=== PATIENT | female | born 1990 | race African-American/Black ===

== ENCOUNTER 2023-10-04 08:11 | Emergency (ER) | payer MEDICAID ==
[~2023-10-04] VITALS: Ht 160 cm; Wt 59.0 kg
[2023-10-04 08:13] VITALS: TEMP 98.7; O2SAT 100
[2023-10-04] MEDS ORDERED: IBUP-2028 MT (09:52)
[2023-10-04 09:54] VITALS: BP 118/60; PULSE 76; RESP 16
[2023-10-04] MEDS: IBUPROFEN 400MG TABLET PO ONE (09:54)
== END 2023-10-04 10:09 | disposition home or self-care (01) ==
LOC: ER 08:11
DX: S06.0X0A Concussion without loss of consciousness, initial encounter (principal); X58.XXXA Exposure to other specified factors, initial encounter; Y93.89 Activity, other specified; Y92.89 Other specified places as the place of occurrence of the external cause; Y99.8 Other external cause status
CPT/HCPCS: 81025; 99284